=== PATIENT | male | born 1995 | race Caucasian/White ===

== ENCOUNTER 2017-06-28 11:29 | Emergency (ER) | payer BC ==
--- NOTE | 2017-06-28 11:54 | EDPHY ---
HPI/HX/ROS/PE/MDM Narrative: CHIEF COMPLAINT: Abdominal pain, vomiting, bloody diarrhea HPI: The patient is a 22 y/o male arriving with his family member from [facility] for evaluation of acute onset abdominal pain, vomiting, and bloody diarrhea around 5:30 this morning, about 6.5 hours ago. He woke with umbilical abdominal pain and immediately needed to vomit. He had a few subsequent episodes of vomiting and bloody, liquid diarrhea. He describes his stool looking "like someone had poured red food coloring in it." His pain improved somewhat after bowel movements. He was able to drink a small amount of water and apple juice throughout the morning. His pain remains localized around his umbilicus and does not radiate. He was evaluated at [facility] where they obtained a stool sample and then referred to the ED. He doesn't know anyone else with similar symptoms and cannot identify any odd foods he's eaten recently. He denies recent antibiotic use. No history of abdominal surgeries. REVIEW OF SYSTEMS: Aside from elements discussed in the HPI, a comprehensive 10-point review of systems was reviewed and is negative. PMH: Denies SOCIAL HISTORY: [employer] student. Family member at bedside. PHYSICAL EXAM: General:Patient is alert, in no acute distress. ENT:Eyes are normal to inspection. ENT inspection normal. Neck: Normal inspection. Full range of motion. Respiratory:No respiratory distress. Breath sounds normal bilaterally. Cardiovascular: Regular rate and rhythm. Strong peripheral pulses. Normal cap refill. Abdomen:The abdomen has mild diffuse tenderness to palpation. There are no peritoneal signs. Back: Normal to inspection. No tenderness to palpation. Skin: Normal color. No rash. Warm and dry. Extremities: Normal appearance. Full range of motion. Neuro: Oriented x3. Normal motor function. Normal sensory function. ED Course: This is a normally healthy 22 y/o male who presents with a 5.5 hour history of umbilical abdominal pain, vomiting, and bloody diarrhea. Plan for IV, labs, and abdominal CT. CT shows incidental liver cyst that requires MRI follow up within 1 month. MDM: This patient presents with abdominal pain and some mild blood in stool per outpatient facility. Patient has reassuring exam. He does have an elevated white blood cell count but shows no signs of anemia. His CT of the abdomen is essentially negative and the appendix not visualized. I explained this in detail to the patient and his mother and recommended that they return to the emergency department within 24 hours for re-evaluation. They understand that acute appendicitis has not been fully ruled out and they will need to follow up with a form builder helper regardless. - Data Points Imaging: Discussed imaging studies w/ correspondence specialist Radiologist, I viewed and interpreted images myself Laboratory Results: Laboratory Results 06/28/17 12:00 06/28/17 12:00 06/28/17 06/28/17 12:00 12:00 WBC 14.37 10^3/uL H 10^3/uL (3.80-9.50) RBC 5.14 10^6/uL 10^6/uL (4.40-6.38) Hgb 16.0 g/dL g/dL (13.7-17.5) Hct 45.5 % % (40.0-51.0) MCV 88.5 fL fL (81.5-99.8) MCH 31.1 pg pg (27.9-34.1) MCHC 35.2 g/dL g/dL (32.4-36.7) RDW 11.9 % % (11.5-15.2) Plt Count 336 10^3/uL 10^3/uL (150-400) MPV 9.2 fL fL (8.7-11.7) Neut % (Auto) 88.4 % H % (39.3-74.2) Lymph % (Auto) 5.7 % L % (15.0-45.0) [place] % (Auto) 5.2 % % (4.5-13.0) Eos % (Auto) 0.1 % L % (0.6-7.6) Baso % (Auto) 0.3 % % (0.3-1.7) Nucleat RBC Rel Count 0.0 % % (0.0-0.2) Absolute Neuts (auto) 12.70 10^3/uL H 10^3/uL (1.70-6.50) Absolute Lymphs (auto) 0.82 10^3/uL L 10^3/uL (1.00-3.00) Absolute Monos (auto) 0.75 10^3/uL 10^3/uL (0.30-0.80) Absolute Eos (auto) 0.01 10^3/uL L 10^3/uL (0.03-0.40) Absolute Basos (auto) 0.04 10^3/uL 10^3/uL (0.02-0.10) Absolute Nucleated RBC 0.00 10^3/uL 10^3/uL (0-0.01) Immature Gran % 0.3 % % (0.0-1.1) Immature Gran # 0.05 10^3/uL 10^3/uL (0.00-0.10) Sodium 142 mEq/L mEq/L (134-144) Potassium 4.3 mEq/L mEq/L (3.5-5.2) Chloride 103 mEq/L mEq/L (97-110) Carbon Dioxide 23 mEq/l mEq/l (22-31) Anion Gap 16 mEq/L mEq/L (8-16) BUN 12 mg/dL mg/dL (7-23) Creatinine 1.0 mg/dL mg/dL (0.7-1.3) Estimated GFR > 60 Glucose 135 mg/dL H mg/dL (70-100) Calcium 10.2 mg/dL mg/dL (8.5-10.4) Medications Given: Discontinued Medications Ondansetron HCl (Zofran) 4 mg IVP EDNOW ONE Stop: 06/28/17 13:32 Last Admin: 06/28/17 13:33 Dose: 4 mg General Time Seen by Provider: 06/28/17 11:50 Initial Vital Signs: Initial Vital Signs Temperature (C) 36.7 C 06/28/17 11:32 Heart Rate 82 06/28/17 11:32 Respiratory Rate 17 06/28/17 11:32 Blood Pressure 128/79 H 06/28/17 11:32 O2 Sat (%) 96 06/28/17 11:32 O2 Delivery Mode Room Air Allergies/Adverse Reactions: No Known Allergies Allergy (Unverified 06/28/17 11:31) Home Medications: Medication Instructions Recorded Ondansetron Odt [Zofran Odt] 4 mg PO Q4PRN PRN #10 tab 06/28/17 Departure - Departure Disposition: Home, Routine, Self-Care Clinical Impression: Bloody diarrhea Abdominal pain Qualifiers: Abdominal location: periumbilical Qualified Code(s): R10.33 - Periumbilical pain Vomiting Qualifiers: Vomiting type: unspecified Vomiting Intractability: non-intractable Nausea presence: with nausea Qualified Code(s): R11.2 - Nausea with vomiting, unspecified Condition: Good Instructions: Acute Nausea and Vomiting (ED), Acute Diarrhea (ED), Abdominal Pain (ED) Additional Instructions: 1. Return to the ED tomorrow for reevaluation unless you are completely back to normal. Return sooner if your symptoms worsen. 2. Follow up with form builder helper in the next week. 3. Take Zofran as prescribed as needed for nausea and vomiting. 4. You need an abdominal MRI within one month to further evaluate an incidental finding of a cyst in your liver seen on your CT today. Referrals: NONE *PRIMARY CARE P,. [Primary Care Provider] - As per Instructions [facility] [Clinic] - As per Instructions Miguel Ramirez MD [Medical Doctor] - As per Instructions Prescriptions: Ondansetron Odt [Zofran Odt] 4 mg PO Q4PRN PRN #10 tab PRN Reason: Nausea Report Scribed for: Miguel Hart Report Scribed by: Nancy Chatman Date of Report: 06/28/17 Time of Report: 11:54 Physician Review and Approval Statement: Portions of this note were transcribed by an ED scribe. I personally performed the history, physical exam, and medical decision making; and confirm the accuracy of the information in the transcribed note.
[2017-06-28 12:12] LABS: % IMMATURE GRANULYOCYTES 0.3 % (0.0-1.1); ABSOLUTE IMMATURE GRANULOCYTES 0.05 10^3/uL (0.00-0.10); ADD DIFF? NO; ADD MORPH? NO; ADD SCAN? NO; ATYPICAL LYMPHOCYTE FLAG 0 (0-99); FRAGMENT RBC FLAG 0 (0-99); HEMATOCRIT 45.5 % (40.0-51.0); LEFT SHIFT FLG 0 (0-99); LIPEMIA HEMOLYSIS FLAG 90 (0-99); MEAN CELL HEMOGLOBIN 31.1 pg (27.9-34.1); MEAN CELL HEMOGLOBIN CONCENTR. 35.2 g/dL (32.4-36.7); MEAN CELL VOLUME 88.5 fL (81.5-99.8); MEAN PLATELET VOLUME 9.2 fL (8.7-11.7); PLATELET CLUMPS FLAG 10 (0-99); PLATELET COUNT 336 10^3/uL (150-400); RED BLOOD CELL COUNT 5.14 10^6/uL (4.40-6.38); RED CELL DISTRIBUTION WIDTH 11.9 % (11.5-15.2)
[2017-06-28 12:19] LABS: ANION GAP 16 mEq/L (8-16); CALCIUM 10.2 mg/dL (8.5-10.4); CARBON DIOXIDE 23 mEq/l (22-31); CHLORIDE 103 mEq/L (97-110); GLOMERULAR FILTRATION RATE > 60; GLUCOSE 135 mg/dL (70-100); POTASSIUM 4.3 mEq/L (3.5-5.2); SODIUM 142 mEq/L (134-144)
[2017-06-28] MEDS ORDERED: IOPAMIDOL (ISOVUE-300) 100 ML BTL ONE (12:39)
[2017-06-28] MEDS ORDERED: ONDANSETRON 4 MG/2 ML VIAL IVP ONE (13:31)
[2017-06-28] MEDS ORDERED: ONDANSETRON 4 MG/2 ML VIAL ONE (13:32)
[2017-06-28 13:34] VITALS: RESP 16
[2017-06-28 14:02] VITALS: BP 121/72; PULSE 87; TEMP 97.9; O2SAT 94
== END 2017-06-28 14:02 | disposition home or self-care (01) ==
DX: R19.7 Diarrhea, unspecified (principal); R10.33 Periumbilical pain; R11.2 Nausea with vomiting, unspecified
CPT/HCPCS: 96374; J2405; Q9967